=== PATIENT | female | born 1975 | race Caucasian/White ===

== ENCOUNTER 2017-08-24 13:43 | Observation (INO) | payer BC, MEDICAID ==
[~2017-08-24] VITALS: Ht 165.1 cm; Wt 97.3 kg
[~2017-08-24 13:43] MED LIST: AMIT25TA23 PO; HYDR-569 PO
[2017-08-24 14:38] LABS: PROTHROMBIN TIME 10.3 SECONDS (9.0-12.0)
[2017-08-24 14:41] LABS: BASOPHILS # (AUTO) 0.1 X10'3 (0-0.2); BASOPHILS % (AUTO) 0.7 % (0-1); EOSINOPHILS # (AUTO) 0.1 X10'3 (0-0.9); EOSINOPHILS % (AUTO) 1.7 % (0-6); HEMATOCRIT 24.4 % (35.0-45.0); HEMOGLOBIN 7.5 g/dl (12.0-16.0); LYMPHOCYTES # (AUTO) 1.6 X10'3 (1.1-4.8); LYMPHOCYTES % (AUTO) 18.9 % (21-51); MEAN CORPUSCULAR HEMOGLOBIN 19.9 PG (27.0-31.0); MEAN CORPUSCULAR HGB CONC 30.6 % (33.0-36.5); MEAN PLATELET VOLUME 7.1 FL (7.4-10.4); MONOCYTES # (AUTO) 0.8 X10'3 (0-0.9); MONOCYTES % (AUTO) 9.1 % (2-12); NEUTROPHILS % (AUTO) 69.6 % (42-75); PLATELET COUNT 499 X10'3 (140-440); RED BLOOD COUNT 3.76 X10'6 (4.20-5.60); RED CELL DISTRIBUTION WIDTH 20.1 % (11.5-14.5); WHITE BLOOD COUNT 8.6 X10'3 (4.5-11.0)
[2017-08-24 14:44] LABS: ALANINE AMINOTRANSFERASE 35 U/L (12-78); ALBUMIN 3.4 G/DL (3.4-5.0); ALBUMIN/GLOBULIN RATIO 0.9 (1.1-1.5); ALKALINE PHOSPHATASE 82 IU/L (46-116); ANION GAP 11 (8-16); ASPARTATE AMINO TRANSFERASE 51 U/L (10-37); BILIRUBIN,TOTAL 0.2 MG/DL (0.1-1.0); BLOOD UREA NITROGEN 14 MG/DL (7-18); BUN/CREATININE RATIO 13.9 (6.6-38.0); CALCIUM 8.7 MG/DL (8.5-10.1); CHLORIDE 106 MMOL/L (99-107); CREATININE 1.01 MG/DL (0.40-0.90); GLUCOSE 102 MG/DL (70-104); POTASSIUM 3.9 MMOL/L (3.5-5.1); SODIUM 143 MMOL/L (135-145); TOTAL CARBON DIOXIDE 26.4 MMOL/L (24-32); eGFR 60 ML/MIN
[2017-08-24 16:06] LABS: ANISOCYTOSIS 2+; MICROCYTOSIS 2+; PLATELET ESTIMATE INCREASED
[2017-08-24 16:07] LABS: SCHISTOCYTES FEW; STOMATOCYTES 1+
[2017-08-24 16:08] LABS: ELLIPTOCYTES FEW; HYPOCHROMASIA 2+; POLYCHROMASIA FEW
[2017-08-24 19:07] LABS: CLARITY,URINE CLOUDY (Clear); COLOR,URINE YELLOW (Yellow); GLUCOSE, URINE NEGATIVE (Neg); KETONES,URINE NEGATIVE (Neg); LEUKOCYTE ESTERASE ,URINE NEGATIVE (Neg); NITRITES, URINE NEGATIVE (Neg); OCCULT BLOOD,URINE TRACE-LYSED (Neg); PROTEIN,URINE NEGATIVE (Neg); UROBILINOGEN,URINE 0.2 E.U/dL (0.2-1.0)
[2017-08-24 19:25] LABS: UA COLLECTION TYPE VOIDED
[2017-08-24 19:26] LABS: MUCUS STRANDS MANY /LPF (Neg); SQUAMOUS EPITHELIAL CELL,UR MANY /LPF (FEW)
[2017-08-24 19:27] LABS: BACTERIA,URINE 1+ /HPF (Neg)
[2017-08-24] MEDS ORDERED: CIPR-259 PO (20:16)
[2017-08-24] MEDS ORDERED: LOSA1TAB36 PO (20:16)
[2017-08-24 21:52] VITALS: BP 121/73
[2017-08-24] MEDS ORDERED: acetaminophen 325mg tablet PO PRN (22:00)
[2017-08-24] MEDS ORDERED: mag hydrox/Alum hydrox/simeth 30ml oral suspension PO PRN (22:00)
[2017-08-24 22:24] VITALS: BP 143/82
[2017-08-24 22:36] VITALS: BP 119/61
[2017-08-24 22:56] VITALS: BP 127/76
[2017-08-24 23:00] VITALS: BP 134/81
[2017-08-25 03:00] VITALS: BP 112/64
[2017-08-25 05:52] LABS: BASOPHILS % (AUTO) 0.5 % (0-1); EOSINOPHILS # (AUTO) 0.1 X10'3 (0-0.9); EOSINOPHILS % (AUTO) 1.4 % (0-6); HEMATOCRIT 30.3 % (35.0-45.0); HEMOGLOBIN 9.7 g/dl (12.0-16.0); LYMPHOCYTES # (AUTO) 1.5 X10'3 (1.1-4.8); LYMPHOCYTES % (AUTO) 18.9 % (21-51); MEAN CORPUSCULAR HEMOGLOBIN 22.1 PG (27.0-31.0); MEAN CORPUSCULAR HGB CONC 31.9 % (33.0-36.5); MEAN CORPUSCULAR VOLUME 69.2 FL (78-98); MEAN PLATELET VOLUME 7.1 FL (7.4-10.4); MONOCYTES # (AUTO) 0.7 X10'3 (0-0.9); MONOCYTES % (AUTO) 9.6 % (2-12); NEUTROPHILS # (AUTO) 5.4 X10'3 (1.8-7.7); NEUTROPHILS % (AUTO) 69.6 % (42-75); PLATELET COUNT 455 X10'3 (140-440); RED BLOOD COUNT 4.38 X10'6 (4.20-5.60); RED CELL DISTRIBUTION WIDTH 23.3 % (11.5-14.5); WHITE BLOOD COUNT 7.7 X10'3 (4.5-11.0)
[2017-08-25 06:00] VITALS: BP 128/78
[2017-08-25 06:32] LABS: ALBUMIN 3.3 G/DL (3.4-5.0); ANION GAP 10 (8-16); BLOOD UREA NITROGEN 13 MG/DL (7-18); BUN/CREATININE RATIO 13.1 (6.6-38.0); CALCIUM 8.5 MG/DL (8.5-10.1); CHLORIDE 105 MMOL/L (99-107); CREATININE 0.99 MG/DL (0.40-0.90); GLUCOSE 94 MG/DL (70-104); POTASSIUM 3.7 MMOL/L (3.5-5.1); SODIUM 141 MMOL/L (135-145); TOTAL CARBON DIOXIDE 26.1 MMOL/L (24-32); eGFR 62 ML/MIN
[2017-08-25 07:21] LABS: ANISOCYTOSIS 3+; HYPOCHROMASIA 1+; MICROCYTOSIS 2+; PLATELET ESTIMATE INCREASED
[2017-08-25 07:22] LABS: POLYCHROMASIA 1+
[2017-08-25] MEDS ORDERED: losartan 50mg tablet PO SCH (09:15)
[2017-08-25 11:00] VITALS: BP 120/70
[2017-08-25] MEDS ORDERED: LOSA50TA37 PO (13:20)
[2017-08-26] MEDS ORDERED: non-formulary drug (Losartan/Hydrochlorothiazide (Losartan-Hctz 50-12.5 Mg Tab) 1 TAB) PO SCH (08:00)
== END 2017-08-25 15:05 | disposition home or self-care (01) ==
LOC: ER 13:44 → ED HOLD 22:00 → EDBEDREQ 22:33 → PCU 3S 23:28
PROVIDERS: ADMIT Emergency Medicine; ATTEND Internal Medicine
DX: D64.9 Anemia, unspecified (principal); R55 Syncope and collapse; I10 Essential (primary) hypertension; N93.9 Abnormal uterine and vaginal bleeding, unspecified; N39.0 Urinary tract infection, site not specified; R42 Dizziness and giddiness; R53.83 Other fatigue; Z79.899 Other long term (current) drug therapy
CPT/HCPCS: 36415; 36430; 80048; 80053; 81001; 85025; 85610; 86885; 86900; 86901; 86920; 87070; 93005; 93306; 99285; G0378; J7030; P9016

== ENCOUNTER 2020-08-15 20:27 | Emergency (ER) | payer BC ==
[~2020-08-15] VITALS: Ht 165.1 cm; Wt 104.1 kg
[~2020-08-15 20:27] MED LIST changes: -AMIT25TA23 PO; +CIPR-259 PO; -HYDR-569 PO; +LOSA50TA64 PO
[2020-08-15] MEDS ORDERED: LISI1TAB32 PO (23:39)
[2020-08-16 00:13] LABS: ALANINE AMINOTRANSFERASE 48 U/L (12-78); ALBUMIN 3.5 G/DL (3.4-5.0); ALKALINE PHOSPHATASE 97 IU/L (46-116); ANION GAP 7 (8-16); ASPARTATE AMINO TRANSFERASE 31 U/L (10-37); BILIRUBIN,TOTAL 0.2 MG/DL (0.1-1.0); BLOOD UREA NITROGEN 12 MG/DL (7-18); BUN/CREATININE RATIO 10.3 (6.6-38.0); CHLORIDE 106 MMOL/L (99-107); CREATININE 1.17 MG/DL (0.40-0.90); GLUCOSE 103 MG/DL (70-104); POTASSIUM 3.7 MMOL/L (3.5-5.1); SODIUM 142 MMOL/L (135-145); TOTAL CARBON DIOXIDE 28.9 MMOL/L (24-32); eGFR 50 ML/MIN
[2020-08-16 00:38] VITALS: BP 230/101
== END 2020-08-16 00:40 | disposition home or self-care (01) ==
LOC: ER 20:27
DX: R60.9 Edema, unspecified (principal); I10 Essential (primary) hypertension
CPT/HCPCS: 36415; 80053; 99283

== ENCOUNTER 2021-05-19 11:20 | Observation (INO) | payer BC ==
[~2021-05-19] VITALS: Ht 167.6 cm; Wt 110.0 kg
[~2021-05-19 11:20] MED LIST changes: +LISI1TAB49 PO
[2021-05-19] MEDS ORDERED: niCARdipine I.V. 50 MG in normal saline 250ml IV soln 230 ML IV SCH (12:15)
[2021-05-19] MEDS ORDERED: niCARDipine-NS 40mg/200ml IVPB 200 ML IV SCH ×2 (12:20→20:45)
[2021-05-19 12:35] LABS: BASOPHILS % (AUTO) 0.5 % (0-1); EOSINOPHILS # (AUTO) 0.1 X10'3 (0-0.9); HEMATOCRIT 45.7 % (35.0-45.0); HEMOGLOBIN 15.3 g/dl (12.0-16.0); LYMPHOCYTES # (AUTO) 1.8 X10'3 (1.1-4.8); LYMPHOCYTES % (AUTO) 21.8 % (21-51); MEAN CORPUSCULAR HEMOGLOBIN 30.2 PG (27.0-31.0); MEAN CORPUSCULAR HGB CONC 33.5 g/dL (33.0-36.5); MEAN CORPUSCULAR VOLUME 90.2 FL (78-98); MEAN PLATELET VOLUME 7.7 FL (7.4-10.4); MONOCYTES # (AUTO) 0.7 X10'3 (0-0.9); MONOCYTES % (AUTO) 8.9 % (2-12); NEUTROPHILS # (AUTO) 5.6 X10'3 (1.8-7.7); NEUTROPHILS % (AUTO) 67.8 % (42-75); PLATELET COUNT 372 X10'3 (140-440); RED BLOOD COUNT 5.07 X10'6 (4.20-5.60); RED CELL DISTRIBUTION WIDTH 15.2 % (11.5-14.5); WHITE BLOOD COUNT 8.3 X10'3 (4.5-11.0)
[2021-05-19 12:47] LABS: ALANINE AMINOTRANSFERASE 48 U/L (12-78); ALBUMIN 3.8 G/DL (3.4-5.0); ALKALINE PHOSPHATASE 103 IU/L (46-116); ANION GAP 10 (8-16); ASPARTATE AMINO TRANSFERASE 28 U/L (10-37); BILIRUBIN,TOTAL 0.4 MG/DL (0.1-1.0); BLOOD UREA NITROGEN 11 MG/DL (7-18); BUN/CREATININE RATIO 9.6 (6.6-38.0); CALCIUM 9.2 MG/DL (8.5-10.1); CHLORIDE 104 MMOL/L (99-107); CREATININE 1.14 MG/DL (0.40-0.90); GLUCOSE 87 MG/DL (70-104); POTASSIUM 3.7 MMOL/L (3.5-5.1); SODIUM 143 MMOL/L (135-145); TOTAL CARBON DIOXIDE 28.9 MMOL/L (24-32); TOTAL PROTEIN 7.6 G/DL (6.4-8.2); eGFR 52 ML/MIN
[2021-05-19 13:00] LABS: MAGNESIUM 2.1 MG/DL (1.5-2.4)
--- NOTE | 2021-05-19 13:46 | NUR ---
BP 143/89. CARDI DRIP MAX AT 15. TAGGERT AWARE. NO NEW ORDERS AT THIS TIME. CARD DROP REMAIN AT 15
[2021-05-19] MEDS ORDERED: NO HOME MEDS (14:10)
[2021-05-19] MEDS ORDERED: acetaminophen 325mg tablet PO PRN (15:15)
[2021-05-19] MEDS ORDERED: ondansetron/PF 4mg/2ml inj IV PRN (15:15)
[2021-05-19] MEDS ORDERED: magnesium 2GM in 50ml NS 50 ML IV PRN (15:15)
[2021-05-19] MEDS ORDERED: potassium CL 10mEq/100ml bag 100 ML IV PRN (15:15)
[2021-05-19] MEDS ORDERED: potassium Cl 20 mEq SR tablet PO PRN ×2 (15:15)
[2021-05-19] MEDS ORDERED: magnesium 4gm in 100ml NS 100 ML IV PRN (15:15)
[2021-05-19] MEDS ORDERED: magnesium Cl slow-release 64mg tablet PO PRN (15:15)
[2021-05-19 16:00] LABS: POTASSIUM 3.2 MMOL/L (3.5-5.1)
--- NOTE | 2021-05-19 18:48 | NUR ---
PAGED HOSPITALIST FOR CRITICAL 6HR TROP OF 64
--- NOTE | 2021-05-19 19:52 | NUR ---
PRECEPTING NEW ORIENTEE. NICARDIPINE HELD AT 1730 W/ BP OF 118/74. BP PO MEDS NOT GIVEN. PT REQUESTED SANDWICH AND VASOVAGALED IN BED WHEN SHE SAT UP. PT REGAINED CONSCIOUSNESS WITHIN SECONDS. BP DROPPED TO 82/46 WITH A HR OF 53 BPM. WITHIN 5 MINUTES BP INCREASED TO 104/72 W/ HR OF 73 BPM. PT IS STABLE, A&OX4. DR LAMB HAS BEEN PAGED.
[2021-05-19] MEDS: amLODIPine 5mg tablet PO SCH (19:56)
[2021-05-19] MEDS: lisinopril 10 MG tablet PO SCH (19:59)
[2021-05-19] MEDS: docusate sod 100mg capsule PO SCH (20:00)
[2021-05-19] MEDS: K and/or MAG REPLACEMENT MC SCH (20:21)
[2021-05-19 20:45] VITALS: BP 139/81
[2021-05-19 21:00] VITALS: BP 134/83
[2021-05-19 21:15] VITALS: BP 134/83
[2021-05-19 21:30] VITALS: BP 129/85
--- NOTE | 2021-05-19 21:37 | NUR ---
patient c/o of bad headache. VS stable. Awaiting for call back PAGER ID: [phone] MESSAGE: MESSAGE: Patient Nicole Chua [id number], C/O headache of 8 on a 0-10 scale. no Tylenol order on board . Please advise! Thanks Jumana [phone]
[2021-05-19 22:00] VITALS: BP 122/55
[2021-05-19] MEDS: acetaminophen 325mg tablet PO PRN (22:07)
[2021-05-20] VITALS (14 sets, daily range): BP systolic 93–168; BP diastolic 49–118
[2021-05-20 02:00] LABS: BASOPHILS # (AUTO) 0.1 X10'3 (0-0.2); BASOPHILS % (AUTO) 0.5 % (0-1); EOSINOPHILS # (AUTO) 0.1 X10'3 (0-0.9); EOSINOPHILS % (AUTO) 0.6 % (0-6); HEMATOCRIT 46.4 % (35.0-45.0); HEMOGLOBIN 15.4 g/dl (12.0-16.0); LYMPHOCYTES # (AUTO) 1.7 X10'3 (1.1-4.8); MEAN CORPUSCULAR HGB CONC 33.3 g/dL (33.0-36.5); MEAN CORPUSCULAR VOLUME 90.1 FL (78-98); MEAN PLATELET VOLUME 7.8 FL (7.4-10.4); MONOCYTES # (AUTO) 0.8 X10'3 (0-0.9); MONOCYTES % (AUTO) 6.9 % (2-12); NEUTROPHILS # (AUTO) 8.6 X10'3 (1.8-7.7); PLATELET COUNT 369 X10'3 (140-440); RED BLOOD COUNT 5.15 X10'6 (4.20-5.60); RED CELL DISTRIBUTION WIDTH 15.7 % (11.5-14.5); WHITE BLOOD COUNT 11.2 X10'3 (4.5-11.0)
[2021-05-20 02:18] LABS: ALBUMIN 3.9 G/DL (3.4-5.0); ANION GAP 10 (8-16); BLOOD UREA NITROGEN 18 MG/DL (7-18); BUN/CREATININE RATIO 14.9 (6.6-38.0); CALCIUM 10.1 MG/DL (8.5-10.1); CHLORIDE 103 MMOL/L (99-107); CREATININE 1.21 MG/DL (0.40-0.90); GLUCOSE 119 MG/DL (70-104); MAGNESIUM 2.3 MG/DL (1.5-2.4); POTASSIUM 3.5 MMOL/L (3.5-5.1); SODIUM 140 MMOL/L (135-145); TOTAL CARBON DIOXIDE 27.2 MMOL/L (24-32); eGFR 48 ML/MIN
--- NOTE | 2021-05-20 06:27 | NUR ---
Problems reprioritized. Patient report given, questions answered & plan of care reviewed with EDUARDO Penny.
--- NOTE | 2021-05-20 07:59 | NUR ---
PAGER ID: [phone] MESSAGE: pt [phone] Toma Car had nicardipine d/c'd last night and reordered. [facility] administer [facility]. I just want to clarify you want me to administer the nicardipine IV. Thank you Hemalatha CLARK ext [phone] please advise
[2021-05-20] MEDS: K and/or MAG REPLACEMENT MC SCH (08:00)
[2021-05-20] MEDS: docusate sod 100mg capsule PO SCH (08:00)
[2021-05-20] MEDS: lisinopril 10 MG tablet PO SCH (08:44)
[2021-05-20] MEDS: amLODIPine 5mg tablet PO SCH (08:44)
[2021-05-20] MEDS: acetaminophen 325mg tablet PO PRN (08:52)
--- NOTE | 2021-05-20 08:55 | NUR ---
LEONIE RN Tylenol given for headache while primary nurse Hemalatha CLARK while on break. Ann U
[2021-05-20] MEDS ORDERED: aminophylline 500mg/20ml vial IV PRN (09:05)
[2021-05-20] MEDS ORDERED: nitroGLYCERIN 0.4mg SUBLingual tab SL PRN (09:05)
[2021-05-20] MEDS ORDERED: metoprolol tartrate 1mg/ml inj IV PRN (09:05)
[2021-05-20] MEDS ORDERED: regadenoson 0.4mg/5ml syringe IV PRN (09:05)
[2021-05-20] MEDS ORDERED: LISI10TA27 PO (09:06)
[2021-05-20] MEDS ORDERED: NOR5T PO (09:06)
[2021-05-20] MEDS ORDERED: PERFLUTREN PROTEIN-A MICROSPHR (Optison) 0.22 MG/ML 3ML VIAL IV PRN (12:26)
--- NOTE | 2021-05-20 13:54 | NUR ---
PAGER ID: [phone] MESSAGE: Patient in [id number] Toma Rivera wants to know if you can write her a note for work to take the day off tomorrow to find a primary care physician. I told her I would ask you. Hemalatha CLARK ext [phone]
--- NOTE | 2021-05-20 17:12 | NUR ---
Removed IV it was intact went over discharge medications and answered all questions patient was picked up by mom.
== END 2021-05-20 16:30 | disposition home or self-care (01) ==
LOC: ER 11:21 → ED HOLD 15:20 → PCU 3S 20:35
PROVIDERS: ADMIT Internal Medicine; ATTEND Internal Medicine
DX: R07.89 Other chest pain (principal); I10 Essential (primary) hypertension; I16.1 Hypertensive emergency; R06.02 Shortness of breath; Z90.710 Acquired absence of both cervix and uterus; Z91.19 Patient's noncompliance with other medical treatment and regimen; Z79.899 Other long term (current) drug therapy
CPT/HCPCS: 36415; 71045; 78452; 80048; 80053; 82948; 83735; 83880; 84132; 84484; 85025; 87081; 93005; 93017; 93306; 96365; 96366; 99285; A9500; G0378; J2785; J3490